=== PATIENT | male | born 1990 | race Caucasian/White ===

== ENCOUNTER 2022-01-01 18:48 | Emergency (ER) | payer BC ==
[~2022-01-01] VITALS: Ht 162.5 cm; Wt 58.9 kg
[~2022-01-01 18:48] MED LIST: AGM875T PO; HYDR1CAP2 PO
[2022-01-01 19:06] VITALS: BP 151/84
[2022-01-01] MEDS ORDERED: TETANUS,DIPTH,PERTUSS P/F (BOOSTRIX) 0.5 ML VIAL IM ONE (19:15)
--- NOTE | 2022-01-01 19:18 | ED Upper Extremity ---
General Chief Complaint: Laceration Stated Complaint: R WRIST LAC Source: patient Exam Limitations: no limitations History of Present Illness Date Seen by Provider: January 01, 2022 Time Seen by Provider: 19:16 Initial Comments Patient is a 31-year-old male who presents to the ED for a laceration to his right volar wrist. This occurred 30 minutes ago. Patient states he was working underneath a house for a remodel when his arm got caught between galvanized metal and the ground. Patient states he pulled back his arm in felt sharp pain to the right volar wrist. This resulted in a laceration on the volar side of the wrist. Reports normal range of motion of his digits and wrist. Bleeding controlled direct pressure. Not up-to-date on his tetanus. Allergies and Home Medications Allergies Coded Allergies: Amphetamine (Unverified Allergy, Intermediate, TACHYCARDIA, 06/27/10) Dextroamphetamine (Unverified Allergy, Intermediate, TACHYCARDIA, 06/27/10) Patient Home Medication List Home Medication List Reviewed: Yes Discontinued Medications Amoxicillin/Clavulanate K (Augmentin 875-125 Tablet) 1 Tab Tablet, 1 TAB PO BID Discontinued Reason: No Longer Taking Prescribed by: ALONSO MAIER on 06/27/101818 Last Action: Discontinued Hydrocodone Bit/Acetaminophen (Hydrocodone-Apap 5-500 Cap) 1 Each Capsule, 1-2 CAP PO Q6HR PRN Discontinued Reason: No Longer Taking Prescribed by: ALONSO MAIER on 06/27/101818 Last Action: Discontinued Review of Systems Constitutional: No chills, No diaphoresis EENTM: No blurred vision Respiratory: No cough, No dyspnea on exertion Cardiovascular: No chest pain Gastrointestinal: No abdominal pain, No nausea, No vomiting Genitourinary: No decreased output, No discharge Musculoskeletal: muscle pain, muscle stiffness Skin: other (Laceration) All Other Systems Reviewed Negative Unless Noted: Yes Past Qikuedl-Ewmwva-Jtizxw Hx Patient Social History Tobacco Use?: Yes Substance use?: No Alcohol Use?: Yes Alcohol Frequency: Once in a while Pt feels they are or have been: No Past Medical History Surgery/Hospitalization HX: adhd Physical Exam Vital Signs Vital Signs - First Documented 01/01/22 19:06 Temp 36.5 Pulse 94 Resp 18 B/P (MAP) 151/84 (106) Pulse Ox 98 O2 Delivery Room Air Capillary Refill : Height, Weight, BMI Height: '" Weight: lbs. oz. kg; BMI Method: General Appearance: WD/WN, no apparent distress HEENT: PERRL/EOMI, normal ENT inspection, TMs normal, pharynx normal Neck: non-tender, full range of motion, supple, normal inspection Cardiovascular: regular rate, rhythm, no edema, no gallop, no JVD Respiratory: chest non-tender, lungs clear, normal breath sounds, no respiratory distress, no accessory muscle use Gastrointestinal: normal bowel sounds, non tender, soft Back: normal inspection, no CVA tenderness, no vertebral tenderness Wrist: Yes normal ROM Hand: normal ROM, Right Neurologic/Tendon: normal sensation, normal motor functions, normal tendon functions Skin: other (3 cm half circular laceration to right volar wrist.) Procedures/Interventions Wound Location: Upper Extremities Other Wound Location right wrist Wound Length (cm): 3 Wound's Depth, Shape: superficial, sub Q, tendon Wound Explored: clean Irrigated w/ Saline (ccs): 200 Betadine Prep?: Yes Anesthesia: 1% Lidocaine Volume Anesthetic (ccs): 5 Wound Debrided: minimal Suture: Ethlion Suture Size: 4-0 Number of Sutures: 5 Progress/Results/Core Measures Results/Orders My Orders Orders - MADDIE PHELPStJorge Luis(Acell),Tet Adult (Boostrix (01/01/22 19:15) Lidocaine 1% Inj 20 Ml (Xylocaine 1% Inj (01/01/22 19:19) Medications Given in ED Current Medications Medications Dose Ordered Sig/Anjelica Route Start Time Stop Time Status Last Admin Dose Admin Diphtheria/ Tetanus/Acell Pertussis 0.5 ml ONCE ONCE IM 01/01/22 19:15 01/01/22 19:17 DC 01/01/22 19:21 0.5 ML Lidocaine HCl 20 ml STK-MED ONCE .ROUTE 01/01/22 19:19 01/01/22 19:23 DC 01/01/22 19:22 20 ML Vital Signs/I&O 01/01/22 19:06 Temp 36.5 Pulse 94 Resp 18 B/P (MAP) 151/84 (106) Pulse Ox 98 O2 Delivery Room Air Departure Communication (PCP) Patient with a laceration to the right wrist on the volar side. Wound was irrigated here in the ED. Patient has a partial torn tendon what appears to be the flexor carpi radialis due to the location. The tendon is attached. Very limited secondary to the size of the laceration and what I can view. He does have appropriate movement of his digits. Normal active range of motion of the wrist. Patient was given a tetanus shot. 5 sutures were placed here in the ED after irrigation. Remove in 10 days. Concerning for the partial tear of this tendon. Patient was placed in a splint to prevent movement of the digits to allow healing and furthur tear. May need surgical intervention. This was dis cussed with the patient. He refused anything for pain. Will have patient to follow-up with hand specialist due to the location of the injury. Provided number in discharge instructions. Avoid movement. Patient knowledges. Patient is right-handed. Provided work note. Recommend Neosporin topical to the area. Impression Primary Impression: Wrist laceration Disposition: 01 HOME, SELF-CARE Condition: Stable Departure-Patient Inst. Decision time for Depature: 19:40 Referrals: CALI GÓMEZ,LOCAL PHYSICIAN (PCP) Primary Care Physician Patient Instructions: Laceration Repair With Stitches ED, Tendon Laceration (DC) Add. Discharge Instructions: Need to follow-up with with hand surgeon for further evaluation. Recommend keeping the hand immobilized allow the tendon to heal. Remove sutures in 10 days. Ibuprofen or Tylenol for pain. All discharge instructions reviewed with patient and/or family. Voiced understanding. MADDIE PHELPS January 01, 2022 19:18
[2022-01-01] MEDS ORDERED: LIDOCAINE 1% INJ 20 ML VIAL ONE (19:19)
== END 2022-01-01 19:48 | disposition home or self-care (01) ==
LOC: EDUNIT# 18:48 → ER 18:49
DX: S61.511A Laceration without foreign body of right wrist, initial encounter (principal); Z23 Encounter for immunization; W23.1XXA Caught, crushed, jammed, or pinched between stationary objects, initial encounter
CPT/HCPCS: 12001; 90715